=== PATIENT | male | born 1940 | race Caucasian/White ===

== ENCOUNTER 2020-03-13 10:44 | Inpatient (IN) | payer MEDICARE, BC, MEDICAID ==
[2020-03-13] VITALS (28 sets, daily range): BP systolic 85–148; BP diastolic 44–80
[~2020-03-13] VITALS: Ht 188 cm; Wt 101.0 kg
[2020-03-13 11:20] LABS: HEMATOCRIT 21.7 % (42.0-52.0); MEAN CELL VOLUME 91.6 fl (80.0-94.0); MEAN CORPUSCULAR HGB 29.1 pg (27.0-31.0); MEAN CORPUSCULAR HGB CONC 31.8 g/dl (33.0-37.0); MEAN PLATELET VOLUME 10.8 fl (9.6-12.3); PLATELET COUNT AUTOMATED 249 10*3/uL (130-400); RED BLOOD COUNT 2.37 10*6/uL (4.50-5.90); RED CELL DISTRI WIDTH 15.5 % (0-14.5)
[2020-03-13 11:36] LABS: ALBUMIN 2.5 gm/dl (3.1-4.5); ALKALINE PHOSPHATASE 74 U/L (45-117); BUN 48 mg/dl (7-24); CHLORIDE 105 mmol/L (98-107); CREATININE 1.45 mg/dL (0.70-1.30); LIPASE 25 U/L (73-393); POTASSIUM 4.7 mmol/L (3.5-5.1); SGOT/AST 71 IU/L (3-35); SGPT/ALT 91 U/L (12-78); SODIUM 137 mmol/L (136-145); TOTAL PROTEIN 5.2 gm/dL (6.4-8.2); TROPONIN I 0.043 ng/ml (<0.045)
[2020-03-13 11:38] LABS: ACANTHOCYTES MODERATE; PLATELET SUFFICIENCY NORMAL (NORMAL); SCHISTOCYTES MODERATE; TOTAL CELLS COUNTED 100 #CELLS
[2020-03-13 11:42] LABS: ACT PARTIAL THROMBO TIME 60.7 SECONDS (20.0-32.1)
[2020-03-13 11:47] LABS: INTERNATIONAL NORM RATIO > 9.3 (2.0-3.5)
[2020-03-13 11:51] LABS: BILIRUBIN Negative (Negative); BLOOD Negative (Negative); CLARITY Clear (Clear); COLOR Dark Yellow (Yellow); GLUCOSE Negative (Negative); KETONE Trace (Negative); LEUKO ESTERASE Negative (Negative); NITRITE Negative (Negative); SPECIFIC GRAVITY 1.025 (1.001-1.030)
[2020-03-13 11:58] LABS: MUCOUS TRACE; RBC 0-2 rbc/hpf (0-2)
--- NOTE | 2020-03-13 14:06 | NUR ---
DR JOSEPH CALLED INTO PT'S ROOM AND DISCUSSED PLAN OF CARE WITH PATIENT.
[2020-03-13 14:13] LABS: ABG BASE EXCESS -3.9 mmol/L (-2.0-2.0); ARTERIAL BLOOD GAS PH 7.479 (7.35-7.45)
--- NOTE | 2020-03-13 15:41 | NUR ---
NOTIFIED DR DICKINSON OF CONSULT, ORDERS RECEIVED TO GET A PERMIT EGD FOR AM.
[2020-03-13] MEDS ORDERED: ATORVASTATIN CA40 M1 PO (16:12)
[2020-03-13] MEDS ORDERED: WARFARIN SODIUM1 MG PO (16:14)
[2020-03-13] MEDS ORDERED: DULOXETINE HCL20 MG PO (18:31)
[2020-03-13] MEDS ORDERED: DULOXETINE HCL60 MG PO (18:34)
[2020-03-13] MEDS ORDERED: DILTIAZEM CD240 MG PO (18:34)
[2020-03-13] MEDS ORDERED: FEROSUL325 MG PO (18:35)
[2020-03-13] MEDS ORDERED: TAMSULOSIN HCL0.4 MG PO (18:36)
[2020-03-13] MEDS ORDERED: FUROSEMIDE20 M1 PO (18:37)
[2020-03-13] MEDS ORDERED: POTASSIUM CHLO20 ME4 PO (18:38)
[2020-03-13] MEDS ORDERED: DECADRON4 MG PO ×2 (18:41→18:42)
[2020-03-13] MEDS ORDERED: KEPPRA500 MG PO (18:43)
[2020-03-13] MEDS ORDERED: COMBIVENT RESPIM4 GM INH (18:47)
[2020-03-13] MEDS ORDERED: TYLENOL EXTRA500 MG PO (18:48)
[2020-03-13] MEDS ORDERED: DULCOLAX10 M1 R (18:50)
[2020-03-13] MEDS ORDERED: ZOFRAN4 MG PO (18:53)
[2020-03-13] MEDS ORDERED: TRAMADOL HCL50 MG PO (18:53)
[2020-03-13 22:09] LABS: HEMATOCRIT 21.9 % (42.0-52.0); MEAN CORPUSCULAR HGB 28.5 pg (27.0-31.0); MEAN PLATELET VOLUME 11.5 fl (9.6-12.3); NUCLEATED RED BLOOD CELL 0.2 % (0.0-0.0); RED BLOOD COUNT 2.46 10*6/uL (4.50-5.90); RED CELL DISTRI WIDTH 15.6 % (0-14.5); WHITE BLOOD COUNT 12.9 10*3/uL (4.8-10.8)
[2020-03-13 22:13] LABS: PLATELET COUNT AUTOMATED 174 10*3/uL (130-400)
[2020-03-13 22:19] LABS: INTERNATIONAL NORM RATIO 1.8 (2.0-3.5)
[2020-03-13 22:31] LABS: ACANTHOCYTES FEW; BURR CELLS FEW; PLATELET SUFFICIENCY NORMAL (NORMAL); TOTAL CELLS COUNTED 100 #CELLS
[2020-03-14] VITALS (14 sets, daily range): BP systolic 112–146; BP diastolic 59–89
--- NOTE | 2020-03-14 01:20 | NUR ---
A 79, admitted to ICCU, under the services of FABIOLA Hogan DO with a diagnosis of GI BLEED, COVID. Chief complaint is CHANGE IN MENTAL STATUS. Patient arrived via bed from ER. Monitor applied. Initial assessment completed. Vital signs taken and recorded. FABIOLA HOGAN DO notified of admission to the unit. Orders received. See assessment for past medical history, medications and allergies. Patient and/or family oriented to unit. [facility] ICCU visitation policy reviewed. Clothing/patient valuable form completed. TIERA ABRAHAM
--- NOTE | 2020-03-14 01:30 | NUR ---
Patient disoriented after admission to floor. Patient alert to person, when asked if he knew where he was he stated [facility]. I oriented patient to hospital.Patient did answer no to having dentures and glasses. Patient denies any pain or other symptoms at this time. Will continue to monitor.
[2020-03-14] MEDS ORDERED: VOLTAREN100 GM T (02:26)
[2020-03-14 06:14] LABS: ALBUMIN 2.8 gm/dl (3.1-4.5); ALKALINE PHOSPHATASE 74 U/L (45-117); CHLORIDE 106 mmol/L (98-107); CHOLESTEROL 120 mg/dL (<200); CREATININE 1.37 mg/dL (0.70-1.30); HDL CHOLESTEROL 50 mg/dl (40-60); LDL CHOLESTEROL 45 mg/dL (9-159); POTASSIUM 4.6 mmol/L (3.5-5.1); SGOT/AST 58 IU/L (3-35); SGPT/ALT 64 U/L (12-78); SODIUM 138 mmol/L (136-145); TOTAL PROTEIN 5.6 gm/dL (6.4-8.2); TRIGLYCERIDES 124 mg/dl (<150); VLDL CHOLESTEROL 25 mg/dL (6-40)
[2020-03-14 06:18] LABS: MEAN CELL VOLUME 87.8 fl (80.0-94.0); MEAN CORPUSCULAR HGB 28.7 pg (27.0-31.0); MEAN CORPUSCULAR HGB CONC 32.7 g/dl (33.0-37.0); MEAN PLATELET VOLUME 11.7 fl (9.6-12.3); NUCLEATED RED BLOOD CELL 0.2 % (0.0-0.0); PLATELET COUNT AUTOMATED 175 10*3/uL (130-400); RED CELL DISTRI WIDTH 15.9 % (0-14.5); WHITE BLOOD COUNT 13.5 10*3/uL (4.8-10.8)
[2020-03-14 06:19] LABS: BUN 59 mg/dl (7-24)
[2020-03-14 06:29] LABS: HEMATOCRIT 20.2 % (42.0-52.0)
--- NOTE | 2020-03-14 06:38 | NUR ---
Called critical labs to Dr. Sanchez, awaiting orders.
[2020-03-14 06:51] LABS: INTERNATIONAL NORM RATIO 2.2 (2.0-3.5)
[2020-03-14 07:10] LABS: ACANTHOCYTES MODERATE; PLATELET SUFFICIENCY NORMAL (NORMAL); POLYCHROMASIA SLIGHT; SCHISTOCYTES FEW; TOTAL CELLS COUNTED 100 #CELLS
[2020-03-14 08:16] LABS: VITAMIN D, 25-HYDROXY 32.7 ng/mL (30-100)
--- NOTE | 2020-03-14 09:17 | NUR ---
OT NOTE Occupational therapy order received and chart reviewed. Patient awaiting a blood transfusion. Will check back at a later date for completion of an OT evaluation. Thank you. Jazmyn Guerrero, OTR/L
--- NOTE | 2020-03-14 09:18 | NUR ---
PHYSICAL THERAPY PT evaluation attempted. Patient awaiting blood transfusion with Hgb 6.6. Patient not appropriate for skilled PT evaluation at this time. Will return at a later time/date to complete PT evaluation. Thank you. Nupur Mcgee,PT,DPT
--- NOTE | 2020-03-14 10:52 | NUR ---
BLOOD TRANSFUSION STARTED PER ORDER. VSS. PT DENIES COMPLAINTS AT PRESENT TIME.
--- NOTE | 2020-03-14 12:30 | NUR ---
OT NOTE Occupational therapy order received and chart reviewed. Patient is receiving a blood transfusion. Will check back at a later date for completion of an OT evaluation. Thank you. Jazmyn Guerrero, OTR/L
--- NOTE | 2020-03-14 12:31 | NUR ---
PHYSICAL THERAPY PT evaluation attempted. Patient receiving blood transfusion at this time. Patient not appropriate for skilled PT evaluation at this time. Thank you. Nupur Mcgee,PT,DPT
--- NOTE | 2020-03-14 13:12 | NUR ---
EGD COMPLETED. PT TOLERATED PROCEDURE WELL. ANDREAPT[employer]S CONSTANTINO, UPDATED. PT CONTINUES TO TOLERATE BLOOD TRANSFUSION WELL.
--- NOTE | 2020-03-14 14:00 | NUR ---
BLOOD TRANSFUSION COMPLETED. PT TOLERATED TRANSFUSION WELL.
--- NOTE | 2020-03-14 15:08 | NUR ---
Elastic Attacher Chainstitch Completed Assessment via chart and With Assistance of Rianna at [facility]. Patient is a Alf Care Resident of [facility] and Can return at discharge. There are No Steps in the Nursing Facility. Physician: Dr. Nicole Irizarry Pharmacy: All meds are Provided at [facility] Home health services: N/A Patient's level of ADLs: Complete Care Patient has working utilities: Yes DME: None Follow-up physician's appointment after d/c: Follow up at Facility 1 x month or PRN will be scheduled by Hospitalist Nurse Director Does patient want to access PORTAL?: All Information will be sent with Pt. to [facility]. Discharge plan at this time is for Pt. to return to [facility]. Pt. can Return to Facility without Precert and Can have Covid Diagnosis. GROVER HERNANDEZ LPN
--- NOTE | 2020-03-14 15:26 | NUR ---
NOTIFIED RESIDENT OF NEED TO ORDER PT'S HOME MEDS AND RESULTS OF TODAY'S EGD.
[2020-03-14 16:54] LABS: HEMATOCRIT 26.1 % (42.0-52.0); MEAN CORPUSCULAR HGB 29.7 pg (27.0-31.0); NUCLEATED RED BLOOD CELL 0.1 10*3/uL (0.0-0.0); NUCLEATED RED BLOOD CELL 0.6 % (0.0-0.0); PLATELET COUNT AUTOMATED 201 10*3/uL (130-400); RED CELL DISTRI WIDTH 15.6 % (0-14.5); WHITE BLOOD COUNT 16.3 10*3/uL (4.8-10.8)
[2020-03-14 17:03] LABS: INTERNATIONAL NORM RATIO 2.2 (2.0-3.5)
[2020-03-14 17:15] LABS: ACANTHOCYTES FEW; BURR CELLS FEW; PLATELET SUFFICIENCY NORMAL (NORMAL); TOTAL CELLS COUNTED 100 #CELLS
--- NOTE | 2020-03-14 18:36 | NUR ---
UPDATED PT'S GRANDAUGHTER ON PT'S CONDITION.
--- NOTE | 2020-03-14 20:16 | NUR ---
MEDICATED WITH PO NORCO ORDERED PER PT REQUEST FOR C/O PAIN TO LOWER BACK RATED 10/10.
--- NOTE | 2020-03-14 21:30 | NUR ---
MEDICATION EFFECTIVE FOR PAIN. PT HAS BEEN REPOSITIONED. VSS.
[2020-03-15] VITALS: BP 112/67
[2020-03-15 04:00] VITALS: BP 105/64
[2020-03-15 08:00] VITALS: BP 120/58
[2020-03-15 09:12] LABS: INTERNATIONAL NORM RATIO 2.1 (2.0-3.5)
[2020-03-15 12:00] VITALS: BP 106/67
[2020-03-15 12:22] LABS: HEMATOCRIT 22.7 % (42.0-52.0); MEAN CELL VOLUME 92.7 fl (80.0-94.0); MEAN CORPUSCULAR HGB 29.8 pg (27.0-31.0); MEAN CORPUSCULAR HGB CONC 32.2 g/dl (33.0-37.0); MEAN PLATELET VOLUME 11.1 fl (9.6-12.3); NUCLEATED RED BLOOD CELL 0.1 10*3/uL (0.0-0.0); NUCLEATED RED BLOOD CELL 0.7 % (0.0-0.0); PLATELET COUNT AUTOMATED 181 10*3/uL (130-400); RED BLOOD COUNT 2.45 10*6/uL (4.50-5.90); RED CELL DISTRI WIDTH 15.8 % (0-14.5); WHITE BLOOD COUNT 15.4 10*3/uL (4.8-10.8)
[2020-03-15 13:08] LABS: TOTAL CELLS COUNTED 100 #CELLS
[2020-03-15 13:09] LABS: ACANTHOCYTES FEW; BURR CELLS FEW; OVALOCYTES FEW; PLATELET SUFFICIENCY NORMAL (NORMAL); SCHISTOCYTES FEW
[2020-03-15 16:00] VITALS: BP 106/64
--- NOTE | 2020-03-15 18:33 | NUR ---
Grand daughter Leeann was called and update was given. Pt. remains disoriented to place and time.
[2020-03-15 20:00] VITALS: BP 111/63
--- NOTE | 2020-03-15 20:23 | NUR ---
MEDICATED WITH PO NORCO ORDERED PER PT REQUEST FOR C/O BACK PAIN RATED 8/10.
--- NOTE | 2020-03-15 20:26 | NUR ---
MEDICATED WITH PO DULOLAX ORDERED PER PT REQUEST FOR C/O CONSTIPATION.
--- NOTE | 2020-03-15 21:30 | NUR ---
MEDICATION EFFECTIVE FOR PAIN.
[2020-03-16] VITALS: BP 118/59
--- NOTE | 2020-03-16 | NUR ---
Patient resting quietly with no c/o discomfort. Respirations easy and regular. Vital signs stable. No overt distress. ANDREINA HUERTA
[2020-03-16 04:00] VITALS: BP 128/78
--- NOTE | 2020-03-16 04:00 | NUR ---
Patient resting quietly with no c/o discomfort. Respirations easy and regular. Vital signs stable. No overt distress. ANDREINA HUERTA
[2020-03-16 06:13] LABS: HEMATOCRIT 22.4 % (42.0-52.0); MEAN CELL VOLUME 93.3 fl (80.0-94.0); MEAN CORPUSCULAR HGB 30.4 pg (27.0-31.0); MEAN CORPUSCULAR HGB CONC 32.6 g/dl (33.0-37.0); NUCLEATED RED BLOOD CELL 0.1 10*3/uL (0.0-0.0); NUCLEATED RED BLOOD CELL 0.5 % (0.0-0.0); PLATELET COUNT AUTOMATED 225 10*3/uL (130-400); WHITE BLOOD COUNT 15.2 10*3/uL (4.8-10.8)
[2020-03-16 06:15] LABS: CHLORIDE 106 mmol/L (98-107); POTASSIUM 3.8 mmol/L (3.5-5.1); SODIUM 138 mmol/L (136-145)
[2020-03-16 06:26] LABS: ALBUMIN 2.6 gm/dl (3.1-4.5); BUN 40 mg/dl (7-24); CREATININE 1.05 mg/dL (0.70-1.30); SGOT/AST 40 IU/L (3-35); SGPT/ALT 53 U/L (12-78); TOTAL PROTEIN 5.3 gm/dL (6.4-8.2)
[2020-03-16 06:29] LABS: ALKALINE PHOSPHATASE 74 U/L (45-117)
--- NOTE | 2020-03-16 06:32 | NUR ---
DULCOLAX NOT EFFECTIVE TO THIS POINT.
[2020-03-16 06:47] LABS: INTERNATIONAL NORM RATIO 2.4 (2.0-3.5)
[2020-03-16 06:56] LABS: TOTAL CELLS COUNTED 100 #CELLS
[2020-03-16 06:57] LABS: ACANTHOCYTES FEW; BURR CELLS MODERATE; OVALOCYTES MODERATE; PLATELET SUFFICIENCY NORMAL (NORMAL)
[2020-03-16 08:00] VITALS: BP 111/81
--- NOTE | 2020-03-16 09:47 | NUR ---
Awake and alert. Disoriented to place and time. Full feed for breakfast. Grandaughter called in and update was given.
[2020-03-16 12:00] VITALS: BP 130/76
--- NOTE | 2020-03-16 13:50 | NUR ---
PER DR FERNANDEZ, FIO2 DECREASED TO 40% ETT ADVANCED 1.5 CMS TO 24.5. PT TOLERATED WELL. BBSs EQUAL.
[2020-03-16 16:00] VITALS: BP 123/69
--- NOTE | 2020-03-16 16:23 | NUR ---
1333 MOM given for continued constipation. Co-operative w/ care.
--- NOTE | 2020-03-17 00:30 | NUR ---
Patient resting quietly with no c/o discomfort. Respirations easy and regular. Vital signs stable. No overt distress. ANDREINA HUERTA
--- NOTE | 2020-03-17 01:00 | NUR ---
Patient resting quietly with no c/o discomfort. Respirations easy and regular. Vital signs stable. No overt distress. ANDREINA HUERTA
--- NOTE | 2020-03-17 04:00 | NUR ---
Patient resting quietly with no c/o discomfort. Respirations easy and regular. Vital signs stable. No overt distress. ANDREINA HUERTA
[2020-03-17 06:26] LABS: ALBUMIN 2.4 gm/dl (3.1-4.5); ALKALINE PHOSPHATASE 79 U/L (45-117); BUN 34 mg/dl (7-24); CHLORIDE 109 mmol/L (98-107); POTASSIUM 3.9 mmol/L (3.5-5.1); SGOT/AST 35 IU/L (3-35); SGPT/ALT 46 U/L (12-78); SODIUM 139 mmol/L (136-145); TOTAL PROTEIN 5.2 gm/dL (6.4-8.2)
[2020-03-17 06:48] LABS: HEMATOCRIT 22.2 % (42.0-52.0); MEAN CELL VOLUME 94.9 fl (80.0-94.0); MEAN CORPUSCULAR HGB 30.3 pg (27.0-31.0); MEAN PLATELET VOLUME 10.6 fl (9.6-12.3); NUCLEATED RED BLOOD CELL 0.1 10*3/uL (0.0-0.0); NUCLEATED RED BLOOD CELL 0.4 % (0.0-0.0); PLATELET COUNT AUTOMATED 257 10*3/uL (130-400); RED BLOOD COUNT 2.34 10*6/uL (4.50-5.90); RED CELL DISTRI WIDTH 17.3 % (0-14.5); WHITE BLOOD COUNT 13.5 10*3/uL (4.8-10.8)
[2020-03-17 08:00] VITALS: BP 107/59; BP 109/59
[2020-03-17 08:00] LABS: INTERNATIONAL NORM RATIO 2.6 (2.0-3.5)
[2020-03-17 08:14] LABS: PLATELET SUFFICIENCY NORMAL (NORMAL); TOTAL CELLS COUNTED 100 #CELLS
[2020-03-17 08:15] LABS: OVALOCYTES FEW; POLYCHROMASIA SLIGHT
--- NOTE | 2020-03-17 08:50 | NUR ---
Awake and alert. Disoriented to place and time. BUE swollen, elevated on 2 pillows.
[2020-03-17 12:00] VITALS: BP 155/58
--- NOTE | 2020-03-17 13:33 | NUR ---
PHYSICAL THERAPY Physical Therapy evaluation completed on ICCU with full evaluation to follow. Moderate complexity skilled PT evaluation per chart review and evaluation, [address]. Recommend physical therapy per plan of care and SNF upon discharge. Thank you for this referral. Nupur Mcgee,PT,DPT
--- NOTE | 2020-03-17 13:34 | NUR ---
Occupational Therapy evaluation completed on ICCU with full evaluation to follow. Recommend occupational therapy per plan of care and SNF upon discharge. Thank you for this referral. Jazmyn Guerrero OTR/L
--- NOTE | 2020-03-17 14:53 | NUR ---
1300 Dr. Johnson in and made aware of large ecchymotic area below right axilla and side. Also aware of ecchymosis of scrotum. 1430 Transferred to [facility] via bed . Report to be given to Dorinda MEJIAS .
--- NOTE | 2020-03-17 16:30 | NUR ---
PER DR MOSS'S ORDER PT TO BE IN STANDARD ISOLATION HE IS OUTSIDE HIS VIRAL WINDOW. PT POSITIVE WAS ON 03/04/20. JOSE GREEN NOTIFIED AND AGREED. NURSING AQUATIC DIRECTOR GO NEWMAN AWARE.
[2020-03-17 20:00] VITALS: BP 124/71
--- NOTE | 2020-03-17 23:50 | NUR ---
DR GUADARRAMA AWARE THAT [facility] IS ON THE PHONE AND NEEDING TO SPEAK WITH A DOCTOR AT THIS TIME. SHE STATES SHE WILL BE UP TO THE FLOOR
[2020-03-18] VITALS: BP 114/59
[2020-03-18 06:30] LABS: HEMATOCRIT 22.8 % (42.0-52.0); MEAN CELL VOLUME 97.9 fl (80.0-94.0); MEAN CORPUSCULAR HGB 30.5 pg (27.0-31.0); MEAN CORPUSCULAR HGB CONC 31.1 g/dl (33.0-37.0); MEAN PLATELET VOLUME 10.2 fl (9.6-12.3); NUCLEATED RED BLOOD CELL 0.3 % (0.0-0.0); PLATELET COUNT AUTOMATED 312 10*3/uL (130-400); RED BLOOD COUNT 2.33 10*6/uL (4.50-5.90); RED CELL DISTRI WIDTH 18.6 % (0-14.5); WHITE BLOOD COUNT 11.6 10*3/uL (4.8-10.8)
[2020-03-18 06:39] LABS: ALBUMIN 2.4 gm/dl (3.1-4.5); BUN 32 mg/dl (7-24); CHLORIDE 106 mmol/L (98-107); POTASSIUM 3.4 mmol/L (3.5-5.1); SODIUM 141 mmol/L (136-145)
[2020-03-18 06:43] LABS: ALKALINE PHOSPHATASE 83 U/L (45-117); CREATININE 0.98 mg/dL (0.70-1.30); SGOT/AST 34 IU/L (3-35); SGPT/ALT 41 U/L (12-78); TOTAL PROTEIN 5.3 gm/dL (6.4-8.2)
[2020-03-18 07:33] LABS: BURR CELLS FEW; OVALOCYTES FEW; PLATELET SUFFICIENCY NORMAL (NORMAL); POLYCHROMASIA SLIGHT; SCHISTOCYTES FEW; TOTAL CELLS COUNTED 100 #CELLS
[2020-03-18 08:00] VITALS: BP 111/64
--- NOTE | 2020-03-18 10:40 | NUR ---
Clinical Updates faxed to Rianna at [facility] [phone]. Advised of Physical Therapy Recommend SNF upon return.
--- NOTE | 2020-03-18 11:00 | NUR ---
PHYSICAL THERAPY Patient seen this am 1;1 for therapy visit and was short sitting with HOB elevated in bed upon therapist arrival. Patient presented with increased B forearm / hand edema and was joined by OT respiratory therapy assistant this session for observation. Patient identified by name / and transfers supine to sit EOB with MAX A x 2, c/o of B LE stiffness, joint discomfort. Patient tolerated approx 6 minutes static EOB sit, CGA without c/o. Patient also performed sit to stand transfer, MAX A x 2 for initial rise, then MOD A x 1 to maintain upright position, tolerating approx 10 seconds, POOR upright posture with use of wh walker standing support. Patient unable to complete second sit to stand trial secondary to increased fatigue / B LE weakness and returned to supine in bed MAX A x 2. Patient remained in bed with call light, tray table, telephone and bed alarm for safety. Will continue per POC as tolerated, total treatment time 17 minutes. Jluis Medrano, DIALYSIS SOCIAL WORKER
--- NOTE | 2020-03-18 11:13 | NUR ---
OT NOTE Pt was seen this A.M. 1:1 for 20 minute OT session. Upon arrival pt was supine in bed. Pt identified by name and and had no complaints at this time. Pt presented to therapy with moderate edema to BUE's. Pt transferred supine to sit EOB with maxA x 2. While sitting EOB pt completed AAROM to B shoulders, elbows, wrist, and digit joints over all planes to end point for 1 X 15 to increase and restore maximum functional use. Pt was educated on pumping exercises for edema control, pt completed 1 X 5 with max verbal prompts however then completed no other reps. Pt tolerated sitting EOB for 6 minutes with F-/F+ sitting balance. Two sit to stand transfers were completed from elevated bed level with maxA x 2 and use of w/w for UE support. Pt tolerated aprox 10 seconds of static standing first attempt before B knees buckled requiring pt to sit. Second attempt pt was unable to complete full stand even with max X 2 assist. Pt then transferred sit to supine with maxA X 2. There he was left with BUE's elevated for edema control, call light in hand, tray table in place, and bed alarm activated for safety. Continue with rec D/C plan to SNF. JOSEP Harris/Yeyo
[2020-03-18 12:00] VITALS: BP 110/66
[2020-03-18 12:05] LABS: INTERNATIONAL NORM RATIO 2.4 (2.0-3.5)
--- NOTE | 2020-03-18 14:53 | NUR ---
PT TRANSFERRED VIA BED TO [facility]. REPORT GIVEN TO RANDELL BARRETT.
[2020-03-18 16:00] VITALS: BP 116/60
[2020-03-18 20:00] VITALS: BP 129/62
--- NOTE | 2020-03-18 21:30 | NUR ---
DAUGHTER CALLED AND STATED THAT WHEN PATIENT RECEIVES LASIX IT ELEVATES HIS AMMONIA AND CHANGES HIS MENTALITY.
[2020-03-19] VITALS: BP 112/56
--- NOTE | 2020-03-19 05:52 | NUR ---
24 HR chart check completed.
[2020-03-19 07:28] LABS: HEMATOCRIT 23.6 % (42.0-52.0); MEAN CORPUSCULAR HGB 29.8 pg (27.0-31.0); MEAN CORPUSCULAR HGB CONC 32.2 g/dl (33.0-37.0); MEAN PLATELET VOLUME 9.7 fl (9.6-12.3); PLATELET COUNT AUTOMATED 318 10*3/uL (130-400); RED BLOOD COUNT 2.55 10*6/uL (4.50-5.90); WHITE BLOOD COUNT 10.5 10*3/uL (4.8-10.8)
[2020-03-19 07:37] LABS: INTERNATIONAL NORM RATIO 2.4 (2.0-3.5)
[2020-03-19 07:41] LABS: BUN 32 mg/dl (7-24); CHLORIDE 105 mmol/L (98-107); CREATININE 1.03 mg/dL (0.70-1.30); POTASSIUM 3.4 mmol/L (3.5-5.1); SODIUM 140 mmol/L (136-145)
[2020-03-19 07:47] LABS: MEAN CELL VOLUME 92.5 fl (80.0-94.0)
[2020-03-19 08:00] VITALS: BP 110/56
--- NOTE | 2020-03-19 08:05 | NUR ---
PHYSICAL THERAPY Patient seen this am 1:1 for therapy visit and was supine in bed following patient care upon therapist arrival. Patient identified by name / and joined by OT broker assistant for observation this session. Patient reports chronic B LE stiffness, including L knee pain, but unable to rate on 0-10 pain scale. Patient was pleasant this morning, transfering supine to sit EOB with MAX A x 2, tolerating approx 12 minutes static EOB sit, which is about double the sit time as compared to yesterday. Patient also completed sit to stand transfer, MAX A x 2, demonstrating very slow initial rise, requiring v/c to improve overall transfer technique, with increased B knne extension / B elbow extension with use of wh walker standing support. Patient tolerated approx 20 seconds static stand first attmept and < 10 seconds during second attempt due to L knee buckling. Patient returned to supine in bed and remained with call light, tray table, telephone, bed alarm for safety. Will continue per POC as tolerated, total treatment time 18 minutes. Jluis Medrano, WILL CALL CLERK
[2020-03-19 08:11] LABS: ACANTHOCYTES FEW; ATYPICAL LYMPHS 1 % (0-0); OVALOCYTES FEW; PLATELET SUFFICIENCY NORMAL (NORMAL); POLYCHROMASIA SLIGHT; SCHISTOCYTES FEW; TARGET CELLS FEW; TOTAL CELLS COUNTED 100 #CELLS
--- NOTE | 2020-03-19 08:18 | NUR ---
OT NOTE Pt was seen this A.M. 1:1 for 25 minute OT session. Upon arrival pt was supine in bed. Pt identified by name and and had complaints of L knee pain which he did not rate on 0-10 pain scale, pt reports it is due to arthritis. Pt presented to therapy with min edema to BUE's. Pt transferred supine to sit EOB with maxA X 2. While sitting EOB pt's socks were donned with maxA. While seated pt completed AAROM to B shoulder, elbow, wrist, and digit joints over all planes for 1 X 10 to increase and restore maximum functional use. Pt completed two sit to stand transfers from bed level with maxA X 2 and use of w/w for UE support. Challenged pt's static standing tolerance needed for increased I and enhanced endurance, pt was able to tolerate aprox 20 seconds the first attempt and 5 seconds the second attempt before sitting due to L knee buckle. Also while sitting EOB pt completed grooming task consisting of hair care with SBA. Pt tolerated sitting upright for aprox 13 minutes before laying back into bed sit to supine with maxA X 2. There he was left with call light in hand, tray table in place, and bed alarm activated for safety. Continue with rec D/C plan to SNF. JOSEP Harris/Yeyo
[2020-03-19] MEDS ORDERED: Carafate1 GM PO (13:37)
[2020-03-19] MEDS ORDERED: PROTONIX40 MG PO (13:37)
--- NOTE | 2020-03-19 14:17 | NUR ---
Spoke with Rianna at [facility]. Notified of Plans to discharge Pt. today. Notified Pt. daughter Leeann of Planned discharge via telephone.
[2020-03-19 16:00] VITALS: BP 118/66
--- NOTE | 2020-03-19 17:30 | NUR ---
PHYSICAL THERAPY CO-SIGN I approve of the Physical Therapy notes written above. PRINCESS MORROW PT, DPT
--- NOTE | 2020-03-19 19:25 | NUR ---
[facility] HERE TO TRANSPORT PATIENT BACK TO [facility].PATIENT PLACED ON CART AND SENT WITH DISCHARGE PACKET AND BELONGINGS TO [facility]. PATIENT DISCHARGED.
--- NOTE | 2020-03-19 19:31 | NUR ---
NURSE TO NURSE REPORT GIVEN TO TEMITOPE.
--- NOTE | 2020-03-20 07:05 | NUR ---
OCCUPATIONAL THERAPY CO-SIGN I approve of the Occupational Therapy notes written above. ELVIA CAMP, OTR/L
== END 2020-03-19 21:43 | disposition other institution (70) | DRG 177 ==
LOC: ED 10:44 → EDHOLD 13:32 → ICCU 13:32 → EDHOLD 13:46 → ICCU 22:56 → 4E 03-17 13:46 → 5E 03-18 13:11
PROVIDERS: Emergency Medicine; Internal Medicine; Social Worker Clinical; Student in an Organized Health Care Education/Training Program; Surgery; ADMIT Family Medicine; ATTEND Family Medicine
PROC: XW13325 Transfusion of Convalescent Plasma (Nonautologous) into Peripheral Vein, Percutaneous Approach, New Technology Group 5 (ICD-10-PCS; 2020-03-13)
PROC: 30233N1 Transfusion of Nonautologous Red Blood Cells into Peripheral Vein, Percutaneous Approach (ICD-10-PCS; 2020-03-13)
PROC: 0DB68ZX Excision of Stomach, Via Natural or Artificial Opening Endoscopic, Diagnostic (ICD-10-PCS; principal; 2020-03-14)
DX: U07.1 COVID-19 (principal); N17.0 Acute kidney failure with tubular necrosis; E43 Unspecified severe protein-calorie malnutrition; K29.71 Gastritis, unspecified, with bleeding; D68.32 Hemorrhagic disorder due to extrinsic circulating anticoagulants; D62 Acute posthemorrhagic anemia; E87.2 Acidosis; I50.30 Unspecified diastolic (congestive) heart failure; D68.9 Coagulation defect, unspecified; C61 Malignant neoplasm of prostate; T45.515A Adverse effect of anticoagulants, initial encounter; K21.9 Gastro-esophageal reflux disease without esophagitis; J45.909 Unspecified asthma, uncomplicated; Z96.652 Presence of left artificial knee joint; G89.29 Other chronic pain; I48.91 Unspecified atrial fibrillation; M54.9 Dorsalgia, unspecified; E78.5 Hyperlipidemia, unspecified; G40.909 Epilepsy, unspecified, not intractable, without status epilepticus; R73.9 Hyperglycemia, unspecified; R74.01 Elevation of levels of liver transaminase levels; E83.41 Hypermagnesemia; E80.6 Other disorders of bilirubin metabolism; I95.9 Hypotension, unspecified; D72.810 Lymphocytopenia; I11.0 Hypertensive heart disease with heart failure; D72.9 Disorder of white blood cells, unspecified; Z68.28 Body mass index [BMI] 28.0-28.9, adult; Z86.73 Personal history of transient ischemic attack (TIA), and cerebral infarction without residual deficits; Y92.89 Other specified places as the place of occurrence of the external cause; Z95.0 Presence of cardiac pacemaker; Z88.8 Allergy status to other drugs, medicaments and biological substances

== ENCOUNTER 2020-05-05 18:23 | Emergency (ER) | payer MEDICARE, BC, MEDICAID ==
[~2020-05-05 18:23] MED LIST: ATORVASTATIN CA40 M1 PO; COMBIVENT RESPIM4 GM INH; Carafate1 GM PO; DECADRON4 MG PO; DILTIAZEM CD240 MG PO; DULCOLAX10 M1 R; DULOXETINE HCL20 MG PO; DULOXETINE HCL60 MG PO; FEROSUL325 MG PO; FUROSEMIDE20 M1 PO; KEPPRA500 MG PO; POTASSIUM CHLO20 ME4 PO; PROTONIX40 MG PO; TAMSULOSIN HCL0.4 MG PO; TRAMADOL HCL50 MG PO; TYLENOL EXTRA500 MG PO; VOLTAREN100 GM T; WARFARIN SODIUM1 MG PO; ZOFRAN4 MG PO
[2020-05-05 18:44] LABS: BASO % 0.7 % (0.0-1.0); EOS % 0.3 % (1.0-4.0); HEMATOCRIT 39.1 % (42.0-52.0); LYMPH # 0.9 10*3/uL (1.3-4.4); LYMPH % 15.9 % (27.0-41.0); MEAN CELL VOLUME 95.8 fl (80.0-94.0); MEAN CORPUSCULAR HGB 30.9 pg (27.0-31.0); MEAN CORPUSCULAR HGB CONC 32.2 g/dl (33.0-37.0); MEAN PLATELET VOLUME 9.2 fl (9.6-12.3); MONO # 0.5 10*3/uL (0.1-1.0); NEUT # 4.2 10*3/uL (2.3-7.9); NEUT % 74.1 % (47.0-73.0); PLATELET COUNT AUTOMATED 238 10*3/uL (130-400); RED BLOOD COUNT 4.08 10*6/uL (4.50-5.90); RED CELL DISTRI WIDTH 15.2 % (0-14.5); WHITE BLOOD COUNT 5.7 10*3/uL (4.8-10.8)
[2020-05-05 18:56] LABS: ACT PARTIAL THROMBO TIME 39.7 SECONDS (20.0-32.1); INTERNATIONAL NORM RATIO 1.8 (2.0-3.5)
[2020-05-05 19:00] LABS: ALBUMIN 2.6 gm/dl (3.1-4.5); ALKALINE PHOSPHATASE 117 U/L (45-117); BUN 22 mg/dl (7-24); CHLORIDE 107 mmol/L (98-107); CREATININE 1.19 mg/dL (0.70-1.30); POTASSIUM 3.6 mmol/L (3.5-5.1); SGOT/AST 26 IU/L (3-35); SGPT/ALT 40 U/L (12-78); SODIUM 140 mmol/L (136-145); TOTAL PROTEIN 5.8 gm/dL (6.4-8.2)
[2020-05-05 19:10] LABS: TROPONIN I 0.047 ng/ml (<0.045)
== END 2020-05-05 23:30 ==
LOC: ED 18:23
PROVIDERS: Physician Assistant
DX: R60.0 Localized edema (principal); I48.91 Unspecified atrial fibrillation; I11.0 Hypertensive heart disease with heart failure; I50.9 Heart failure, unspecified; Z79.01 Long term (current) use of anticoagulants; Z95.0 Presence of cardiac pacemaker; Z88.6 Allergy status to analgesic agent; Z79.899 Other long term (current) drug therapy; Z96.652 Presence of left artificial knee joint; Z87.891 Personal history of nicotine dependence; Z86.73 Personal history of transient ischemic attack (TIA), and cerebral infarction without residual deficits